=== PATIENT | male | born 1990 | race Caucasian/White ===

== ENCOUNTER 2020-11-11 10:10 | Emergency (ER) | payer MEDICAID ==
[2020-11-11 10:27] VITALS: BP 132/77
--- NOTE | 2020-11-11 11:21 | ED Physician Documentation ---
PD HPI SKIN - Stated complaint Stated Complaint: RT FINGER PX - Chief complaint Chief Complaint: Ext Problem - History obtained from History obtained from: Patient - History of Present Illness Timing - onset: How many days ago (few) Timing - duration: Days (few) Timing - details: Gradual onset, Still present Location: RUE (little finger corner of nailbed, redness and swelling. He has soaked it and it did drain some, but still red and worsening.) Quality / character: Painful, Discolored (red), Swelling Associated symptoms: No: Fever, Myalgias Contributing factors: Other (bites his nails) Similar symptoms before: Has not had sx before Review of Systems Constitutional: denies: Fever, Chills Skin: reports: Lesions Neurologic: denies: Focal weakness, Numbness PD PAST MEDICAL HISTORY - Past Medical History Past Medical History: No - Present Medications Home Medications: Ambulatory Orders Medication Instructions Recorded Confirmed Mupirocin Calcium [Mupirocin] 1 applic TP TID #15 gm 11/11/20 Sulfamethox/Trimeth 800/160 1 each PO BID #10 tab 11/11/20 [Bactrim Ds 800/160] - Allergies Allergies/Adverse Reactions: Allergies Allergy/AdvReac Type Severity Reaction Status Date / Time No Known Drug Allergies Allergy Verified 11/11/20 10:26 PD ED PE NORMAL - Vitals Vital signs reviewed: Yes - General General: Alert and oriented X 3, No acute distress, Well developed/nourished - Derm Derm: Normal color, Warm and dry - Extremities Extremities: Other (right little finger nailbed corner with redness and swelling, no current drainage nor fluid collection. Redness extends proximal into soft tissue. ) - Neuro Neuro: Alert and oriented X 3, No motor deficit, No sensory deficit Results - Vitals Vitals: Vital Signs - 24 hr 11/11/20 10:22 Temperature 36.6 C Heart Rate 64 Respiratory 16 Rate Blood Pressure 132/77 H O2 Saturation 99 Oxygen O2 Source Room air PD MEDICAL DECISION MAKING - ED course Complexity details: considered differential, d/w patient Departure - Departure Disposition: 01 Home, Self Care Clinical Impression: Paronychia, acute, finger Qualifiers: Laterality: right Qualified Code(s): L03.011 - Cellulitis of right finger Condition: Stable Record reviewed to determine appropriate education?: Yes Instructions: ED Fingernail Infec Prescriptions: Sulfamethox/Trimeth 800/160 [Bactrim Ds 800/160] 1 each PO BID #10 tab Mupirocin Calcium [Mupirocin] 1 applic TP TID #15 gm Comments: Continue with soaking the finger to 3 times a day. Apply mupirocin antibiotic ointment topically. Tylenol or ibuprofen if needed for pains. Also take Bactrim oral antibiotic twice daily for the next 4 to 5 days till this has seemed fully resolved. I would anticipate improvement over the next several days with resolution by 3- 5. Discharge Date/Time: 11/11/20 12:02
[2020-11-11] MEDS ORDERED: SULFAMETH/TRIMETH DS 800/160 MG TABLET PO STA (11:44)
[2020-11-11] MEDS ORDERED: MUPIROCIN 2% OINT 1 GM TOP STA (11:44)
== END 2020-11-11 12:02 | disposition home or self-care (01) ==
LOC: ED 10:10
DX: L03.011 Cellulitis of right finger (principal)
CPT/HCPCS: 99282; 99283; A9270